=== PATIENT | male | born 1955 | race Caucasian/White ===

== ENCOUNTER 2019-10-24 14:49 | Emergency (ER) | payer OTHER ==
--- OUTSIDE RECORDS SUMMARY | 2019-10-24 14:52 | XMS REPORT ---
:1955 Author Organization [employer] Care Team Providers Name Role Phone Benton Benavides Provider Role Unavailable Allergies, Adverse Reactions, Alerts Substance Reaction Event Type none Info Not Available Non Drug Allergy Problems Problem Type Condition Code Onset Dates Condition Statu s Problem Nasal airway obstruction J34.89 Act yvonne Problem Cough R05 Active Problem Deviated nasal septum J34.2 Active Problem Allergic rhinitis J30.89 Active Problem Chronic laryngitis (LPRD) J37.0 Ac tive Problem Eustachian tube dysfunction, H69.83 Active bilateral Problem Edema of larynx J38.4 Active Problem Acute bronchitis due to other J20.8 Active specified organisms Problem Sinusitis - Chronic J32.8 Active Problem Cough R05 Active Assessment 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 Activ e Assessment Hearing Loss - Mixed H90.8 Active Assessment Eustachian tube dysfunction, H69.83 Active bilateral Assessment Edema of larynx J38.4 Active Assessment Chronic laryngitis (LPRD) J37.0 Ac tive Assessment Sinusitis - Chronic J32.8 Active Assessment Allergic rhinitis J30.89 Active Assessment Cough R05 Active Medications Medication Code Code Instructions Start End Status Dosage System Date Date Julianasalon Juan Manuel [facility] [id number] 100 MG Orally November 09November Active 1 capsule Three times a 2017 04, as needed day 2018 Valacyclovir HCl [facility] 50261367146 500 MG Orally November 09November Activ e 1 tablet twice a day 2017 Zantac [facility] 54458960443 150 MG Orally November 09, Active 1 tabl et Once a day 2018 at bedtime Tessalon Perles [facility] 94975887476 100 MG Orally November 02, Active 1 capsule Three times a 2018 as needed day Tussionex [facility] 89781391006 10-8 MG/5ML November 01November 11, Active 5 ml a s Pennkinetic ER Orally every 12 2017 2017 n eeded hrs Augmentin [facility] 02497848096 875-125 MG Active 1 table t Orally every 12 hrs Omeprazole [facility] 25346319678 40 MG Orally November 09, Active 1 ca psule Once a day 2018 Results No Known Results Summary Purpose eClinicalWorks Submission
--- OUTSIDE RECORDS SUMMARY | 2019-10-24 14:52 | XMS REPORT ---
:1955 [facility] Team Providers Name Role Phone Benton Benavides Provider Role Unavailable Allergies, Adverse Reactions, Alerts Substance Reaction Event Type none Info Not Available Non Drug Allergy Problems Problem Type Condition Code Onset Dates Condition Statu s Problem Deviated nasal septum J34.2 Active Problem Acute bronchitis due to other J20.8 Active specified organisms Problem Cough R05 Active Problem Eustachian tube dysfunction, H69.83 Active bilateral Problem Allergic rhinitis J30.89 Active Problem Chronic pansinusitis J32.4 Active Problem Cough R05 Active Problem Edema of larynx J38.4 Active Problem Chronic laryngitis (LPRD) J37.0 Ac tive Problem Sinusitis - Chronic J32.8 Active Assessment Chronic laryngitis (LPRD) J37.0 Ac tive Assessment Allergic rhinitis J30.89 Active Assessment Cough R05 Active Assessment Sinusitis - Chronic J32.8 Active Assessment Eustachian tube dysfunction, H69.83 Active bilateral Assessment Chronic pansinusitis J32.4 Active Assessment Edema of larynx J38.4 Active Problem Nasal airway obstruction J34.89 Act yvonne Medications Medication Code Code Instructions Start End Status Dosage System Date Date Doxycycline [facility] [place] [id number] 100 MG Orally November 19November Active 1 tablet Hyclate twice a day 2017 Flonase [facility] [place] 05561228388 50 MCG/ACT November 26, Active 2 sprays Nasally Once a 2018 in each day nostril Dymista [facility] [place] 54855286962 137-50 MCG/ACT November 23, Active 1 pu ff in Nasally Twice a 2018 each day nostril Zantac [facility] [place] 53912600433 150 MG Orally November 09, Active 1 tabl et Once a day 2018 at bedtime Omeprazole [facility] [place] 92659145813 40 MG Orally November 09, Active 1 ca psule Once a day 2018 Astepro [facility] [place] 20166031946 0.15 % Nasally November 26, Active 1 sp ray in Twice a day 2018 each nostril Dymista [facility] [place] 43949380247 137-50 MCG/ACT November 19, Active 1 pu ff in Nasally Twice a 2018 each day nostril Results No Known Results Summary Purpose [employer]Works Submission
--- OUTSIDE RECORDS SUMMARY | 2019-10-24 14:52 | XMS REPORT ---
:1955 Author Organization [employer] Care Team Providers Name Role Phone Sang Pino Provider Role Unavailable Allergies, Adverse Reactions, Alerts Substance Reaction Event Type none Info Not Available Non Drug Allergy Problems Problem Type Condition Code Onset Dates Condition Statu s Assessment Edema of larynx J38.4 Active Problem Edema of larynx J38.4 Active Problem Acute bronchitis due to other J20.8 Active specified organisms Problem Cough R05 Active Problem Nasal airway obstruction J34.89 Act yvonne Assessment Cough R05 Active Problem Cough R05 Active Problem Deviated nasal septum J34.2 Active Medications Medication Code Code Instructions Start End Status Dosage System Date Date Tussionex ND 96279278421 10-8 MG/5ML May 23, Active 5 ml a s Pennkinetic ER Orally every 2016 n eeded hrs Zithromax ND 13458580884 250 MG Orally Active 2 ta blets Once a day on the first day, then 1 tablet daily for 4 days Symbicort ND 32988946820 160-4.5 MCG/ACT Jun 04, Active 2 puffs Inhalation 2016 Twice a day Medrol (Terence) ND 01963638634 4 MG Orally November 01, November 07, Active as directed 2017 2017 Zithromax Z-Terence NDC 82669370010 250 MG Orally Jun 07, Active 2 tablets Once a day 2016 on the first day, then 1 tablet daily for 4 days Tussionex ND 47708160625 10-8 MG/5ML November 01, November 11, Active 5 ml a s Pennkinetic ER Orally every 2017 n eeded hrs Results No Known Results Summary Purpose [employer]ClinicalWorks Submission
--- OUTSIDE RECORDS SUMMARY | 2019-10-24 14:52 | XMS REPORT | Clinical Summary ---
:1955 Author Organization [facility] Address [address] [place] [address] Care Team Providers Name Role Phone Jessica Boateng MD Primary Care Provider Allergies No Known Allergies Medications Medication Sig Dispensed Refills Start Date End Date Status FISH OIL-DHA-EPA ORAL Take by mouth. 0 Active Active Problems Not on file Encounters Date Type Specialty Care Team Description 08/12/2019 Hospital Encounter Radiology [facility] Chest Jessica magdaleno MD unspecified typ e 08/12/2019 Hospital Encounter Pulmonology [facility] Dyspne a on exertion; MD KASANDRA Lopez (dyspnea on exertion) 08/12/2019 Hospital Encounter Procedural [facility] Cardiology MD Jessica unspecified typ e 08/12/2019 Hospital Encounter Procedural [facility] Card[facility] MD Jessica unspecified typ e 08/12/2019 Hospital Encounter Procedural [facility] Card[facility] MD Jessica unspecified typ e 08/05/2019 Orders Only General Internal [facility] pa in, unspecified type (Primary Dx); Medicine MD Jessica Dyspnea on exer tion; 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 Last Filed Vital Signs Vital Sign Reading Time Taken Comments Blood Pressure 159/78 08/12/2019 9:27 AM DIRECTOR PAYER Pulse 75 08/12/2019 9:27 AM DIRECTOR PAYER Temperature - - Respiratory Rate 18 08/12/2019 9:27 AM DIRECTOR PAYER Oxygen Saturation 100% 08/12/2019 9:02 AM DIRECTOR PAYER Inhaled Oxygen Concentration - - Weight 77.1 kg (170 lb) 08/12/2019 9:02 AM DIRECTOR PAYER Height 170.2 cm (5' 7") 08/12/2019 9:02 AM DIRECTOR PAYER Body Mass Index 26.63 08/12/2019 9:02 AM DIRECTOR PAYER Plan of Treatment Health Maintenance Due Date Last Done Comments COLONOSCOPY SCREENING 2004 SHINGLES VACCINES (#1) 2004 65+ PNEUMOCOCCAL VACCINE (1 of 2 - PCV13) 2019 INFLUENZA VACCINE 01/17/2020 Procedures Procedure Name Priority Date/Time Associated Diagnosis Comme nts CT CHEST W CONTRAST Routine 08/12/2019 4:35 Chest pain, Resu lts for this PM DIRECTOR PAYER unspecified type procedure a re in the results section. ESTIMATED GFR Routine 08/12/2019 3:47 Results fo r this PM [employer]ER procedure are i n the results section. POC CREATININE Routine 08/12/2019 3:47 Results f or this PM [employer]ER procedure are i n the results section. SIX MINUTE WALK W/ Routine 08/12/2019 3:01 Dyspnea on exertio n Results for this PULSE OXIMETRY PM [employer] procedure are in the results section. SPIROMETRY, Routine 08/12/2019 2:15 SLAUGHTER (dyspnea on Results for this DIFFUSION, MIPS/MEPS PM DIRECTOR PAYER exertion) procedu re are in the results section. US CAROTID DUPLEX Routine 08/12/2019 12:50 Chest pain, Result s for this BILATERAL PM [employer]OR PAYER unspecified type procedure a re in the results section. TTE COMPLETE, WO Routine 08/12/2019 11:51 Chest pain, Results for this CONTRAST, W DOPPLER AM DIRECTOR PAYER unspecified type proc edure are in ([id number]) the results section. NM MYOCARDIAL Routine 08/12/2019 10:44 Chest pain, Results fo r this PERFUSION STRESS AM DIRECTOR PAYER unspecified type procedu re are in REST 1 DAY the results section. CV STRESS TEST Routine 08/12/2019 10:44 Chest pain, Results f or this NUCLEAR CARDIO AM DIRECTOR PAYER unspecified type procedure are in the results section. after 10/23/[address] Chest W Contrast (08/12/2019 4:35 PM DIRECTOR PAYER) Specimen Narrative Performed At Study:CT CHEST W CONTRAST [facility] History: R07.9 Chest pain unspecified, Chest wall pain COMPARISON: None. TECHNIQUE: Multiple axial CT images of the chest perfo rmed With IV contrast.. Coronal and sagittal reconstr uctions were done. CT imaging was performed with iterative reconstruction technique and/or automated exposure control to reduce rad iation dose. FINDINGS: LUNGS: There is no focal consolidation, pleural effusi on, or pneumothorax. There are no suspicious pulmonary nodule s or pulmonary mass. AIRWAYS: No central endobronchial or end otracheal lesions are seen. MEDIASTINUM: The thoracic aorta is without aneurysm or dissection. The pulmonary arteries are unremarkable. Heart is mildly e nlarged. No significant pericardial effusion is present. Mediastin al lymph nodes are small and subcentimeter along the paratracheal region. This nonspecific but probably germain ctive. A small hiatal hernia is present. BONES AND OVERLYING SOFT TISSUES: No acute abnormality of the bones. No enlarged axillary lymph nodes present. VISUALIZED LOWER NECK AND UPPER ABDOMEN: Unremarkable. IMPRESSION: No significant abnormality. [facility]-[id number] Procedure Note Interface, Radiology Results Incoming - 08/12/2019 5:39 PM DIRECTOR PAYER Study:CT CHEST W CONTRAST History: R07.9 Chest pain unspecified, Chest wall pain COMPARISON: None. TECHNIQUE: Multiple axial CT images of t he chest performed With IV contrast.. Coronal and sagittal reconstructions were done. CT imaging was performed with iterative reconstruction technique and/or automated exposure control to reduce radiation dose. FINDINGS: LUNGS: There is no focal consolidation, pleural effusion, or pneumothorax. There are no suspicious pulmonary nodules or pulmonary mass. AIRWAYS: No central endobronchial or end otracheal lesions are seen. MEDIASTINUM: The thoracic aorta is witho ut aneurysm or dissection. The pulmonary arteries are unremarkable. Heart is mildly enlarged. No significant pericardial effusion is present. Mediastinal lymph nodes are small and subcentimeter along the paratracheal region. This nonspecific bu t probably reactive. A small hiatal hernia is present. BONES AND OVERLYING SOFT TISSUES: No acu te abnormality of the bones. No enlarged axillary lymph nodes present. VISUALIZED LOWER NECK AND UPPER ABDOMEN: Unremarkable. IMPRESSION: No significant abnormality. [facility]-[id number] Performing Organization Address City/State/Zipcode Phone Number [facility] [address] [place] [address] Estimated GFR (08/12/2019 3:47 PM DIRECTOR PAYER) Estimated GFR 52 (A) mL/min/1.73 [facility] Comment: m2 HOSPITAL Catergory Units Interpretation G1 >=90 Normal or high G2 60-89 Mildly decreased G3a 45-59 Mildly to moderately decreas ed G3b 30-44 Moderately to severely decre ased G4 15-29 Severely decreased G5 <15 Kidney failure The eGFR was calculated using the Chronic Kidney Disea se Epidemiology Collaboration (CKD-EPI) equation. Interpretation is based on recommendations of the National Kidney Foundation-Kidney Disease Outcomes Jean Carlos lity Initiative (NKF-KDOQI) published in 2014. Specimen Blood Performing Organization Address City/[facility]/Zipcode Phone Number [facility] DEPARTMENT OF PATHOLOGY AND [address] [place] [address] [phone] [address] POC creatinine (08/12/2019 3:47 PM DIRECTOR PAYER) POC creatinine 1.4 (H) 0.7 - 1.2 [facility] Comment: mg/dl HOSPITAL Heel Scourer Name: Chris Mckeon Device ID: [id number] Specimen Blood Performing Organization Address City/[facility] Phone Number [facility] DEPARTMENT OF PATHOLOGY AND [address] [place] [address] [phone] [address] Six minute walk w/ pulse oximetry (08/12/2019 3:01 PM DIRECTOR PAYER) Pathologist Sig nature Heart Rate at Rest 58.00 1/min [facility] SPO2 at Rest 96.00 % [facility] BP Systolic at Rest 170.00 mmHg [facility] BP Diastolic at Rest 85.00 mmHg [facility] Heart Rate after 1 72.00 1/min [facility] minute SPO2 after 1 minute 97.00 % [facility] Heart Rate after 2 73.00 1/min [facility] minutes SPO2 after 2 minutes 93.00 % [facility] Heart Rate after 3 87.00 1/min [facility] minutes SPO2 after 3 minutes 97.00 % [facility] Heart Rate after 4 93.00 1/min [facility] minutes SPO2 after 4 minutes 96.00 % [facility] Heart Rate after 5 94.00 1/min [facility] minutes SPO2 after 5 minutes 92.00 % [facility] Six Minute Walk Distance 600.00 364.25 - 670.25 m [facility] ON in m Heart Rate after 6 96.00 1/min [facility] minutes Highest Heart Rate 96.00 1/min [facility] SPO2 after 6 minutes 93.00 % [facility] Lowest SpO2 92.00 % [facility] BP Systolic after 6 178.00 mmHg [facility] minutes BP Diastolic after 6 92.00 mmHg [facility] minutes Lap Count 15.00 [facility] Six Minute Walk Distance 517 [facility] Predicted Specimen Narrative Performed At This result has an attachment that is no t available. Performing Organization Address City/State/Zipcode Phone Number [facility] [address] [place] [address] Spirometry, diffusion, MIPS/MEPS (08/12/2019 2:15 PM DIRECTOR PAYER) Pathologist Sig nature FEV1 Pre 3.17 2.34 - 3.78 L [facility] FEV1/FVC % Pre 76.14 64.96 - 84.31 % [facility] FVC Pre 4.16 3.26 - 4.96 L [facility] PEF Pre 9.20 6.04 - 10.28 L/s [facility] FEF 25-75% Pre 2.17 0.99 - 3.91 L/s [facility] DLCO Pre 23.28 18.08 - 34.00 [facility] ml/(min*mmHg) DL/VA Pre 4.23 3.06 - 5.46 [facility] ml/(min*mmHg*L) VA SB Pre 5.51 4.88 - 7.61 L [facility] DLCOc Pre 23.28 18.08 - 34.00 [facility] ml/(min*mmHg) KCOc SB Pre 4.23 3.06 - 5.46 [facility] ml/(min*mmHg*L) Hb Pre 14.60 g(Hb)/dL [facility] MIP Pre 118.73 31.98 - 137.81 [facility] cmH2O MEP Pre 194.33 82.61 - 184.66 [facility] cmH2O FEV1 Predicted 3.06 [facility] FEV1 LLN 2.34 [facility] FEV1 % Pre of Predicted 103.4 % [facility] FVC Predicted 4.11 [facility] FVC LLN 3.26 [facility] FVC % Pre of Predicted 101.2 % [facility] FEV1/FVC % Predicted 75 [facility] FEV1/FVC % LLN 65 [facility] FEV1/FVC % Pre of 102.0 % [facility] Predicted FEF 25-75% Predicted 2.45 [facility] FEF 25-75% LLN 0.99 [facility] FEF 25-75% % Pre of 88.8 % [facility] Predicted PEF Predicted 8.16 [facility] PEF LLN 6.04 [facility] PEF % Pre of Predicted 112.7 % [facility] DLCO Predicted 26.04 [facility] DLCO LLN 18.08 [facility] DLCO % Pre of Predicted 89.4 % [facility] DLCOc Predicted 26.04 [facility] DLCOc LLN 18.08 [facility] DLCOc % Pre of 89.4 % [facility] Predicted DL/VA Predicted 4.26 [facility] DL/VA LLN 3.06 [facility] DL/VA % Pre of 99.2 % [facility] Predicted KCOc SB Predicted 4.26 [facility] KCOc SB LLN 3.06 [facility] KCOc SB % Pre of 99.2 % [facility] Predicted VA SB Predicted 6.24 [facility] VA SB LLN 4.88 [facility] VA SB % Pre of 88.2 % [facility] Predicted MIP Predicted 84.89 [facility] MIP LLN 31.98 [facility] MIP % Pre of Predicted 139.9 % [facility] MEP Predicted 133.64 [facility] MEP LLN 82.61 [facility] MEP % Pre of Predicted 145.4 % [facility] Specimen Narrative Performed At This result has an attachment that is no t available. Performing Organization Address City/State/Zipcode Phone Number [facility] [address] [place] [address] Us carotid duplex (08/12/2019 12:50 PM DIRECTOR PAYER) Specimen Narrative Performed At [facility] Vascular U ltrasound Laboratory Carotid A rtery Duplex Report [address] [facility], [facility] [address], [place] [address] For supplier quality manager purposes, the categorization of the degree of the stenosis of this exam is based on criteria described i n the IAC carotid stenosis grading white paper( www.intersocietal.org/Va scular) and Orville Segura., Lino Jensen., et al. Carotid artery stenosis: contreras-scale and Doppler US diagnosis-- Society of Radiologists in Ultrasound Consensus Conference. Radio logy. 2002; 229(2):340-6. Pat.Name: SANKET ALVAREZ M Pat.ID: [id number] .Date: 08/12/2019 Refer.MD: FREEDOM BOATENG MD Exam Time: 11:58:00 AM Study Type:Ca rotid Height: 67in Weight: 170lb BSA: 1.89 m2 Ag e: 1955,64Y Sex: MALE Sonogr phr: Jocelynkimberly Osman, FLACA Pat. Stat.:Outpatient Tape Vol: LN, CPT - 4: 21257 Echo Abi nt ID:[id number] Order ID: [id number] Reason for Study:Chest pain. Procedures: Colorflow, Grayscale/2D, Pul sed wave Doppler Race: C SUMMARY: PHYSICAL ASSESSMENT Blood Pulses Carotid Pressure Carotid Temporal Br uit Right 136/71 + + 0 Left 141/74 + + 0 CAROTID ARTERY SCAN RIGHT: There is intimal thickening i n the common carotid artery. There is smooth intimal lining in the in ternal and external carotid artery. Colorflow is normal. There is antegrade flow seen in the vertebral artery. LEFT: There is hard plaque in the comm on carotid artery. There is smooth intimal lining in the internal an d external carotid artery. Colorflow is normal. There is antegrade flow seen in the vertebral artery. PRELIMINARY FINDINGS 1. Non-stenotic plaque in the left commo n carotid artery. 2. Normal internal carotid artery, bilat erally. 3. Normal external carotid artery, bilat rally. PHYSICIAN INTERPRETATION Bilateral carotid duplex examination dem onstrated increased IMT and atherosclerotic plaques in the left bulb and in the CCAs. Less than 50% stenosis in the left inter nal carotid artery. FINDINGS: Carotid Findings: Right Left Verteb.Flw Antegrade Antegrade Subclavian Triphasic Triphasic MEASUREMENTS: DOPPLER Right CCA Dist CCA Dist PSV 88.7 cm/s CCA Dist EDV 17.6 cm/s Right CCA Prox CCA Prox PSV 88.7 cm/s CCA Prox EDV 11.1 cm/s Right ECA Prox ECA Prox PSV 138 cm/s ECA Prox EDV 7.69 cm/s Right ICA Dist ICA Dist PSV 95.1 cm/s ICA Dist EDV 22.4 cm/s ICA Mid ICA Mid PSV 80.7 cm/s ICA Mid EDV 25.4 cm/s Right ICA Prox ICA Prox PSV 68.5 cm/s ICA Prox EDV 14.1 cm/s Right Vertebral Vertebral PSV 42.7 cm/s Vertebral EDV 10.9 cm/s Right Subclavian Subclavian PSV 170 cm/s Subclavian EDV 8.08 cm/s Left CCA Dist CCA Dist PSV 103 cm/s CCA Dist EDV 25.7 cm/s Left CCA Mid CCA Mid PSV 122 cm/s CCA Mid EDV 29.4 cm/s Left CCA Prox CCA Prox PSV 125 cm/s CCA Prox EDV 20.7 cm/s Left ECA Prox ECA Prox PSV 118 cm/s ECA Prox EDV 9.53 cm/s Left ICA Dist ICA Dist PSV 94.7 cm/s ICA Dist EDV 34.9 cm/s Left ICA Mid ICA Mid PSV 103 cm/s ICA Mid EDV 31.7 cm/s Left ICA Prox ICA Prox PSV 67.2 cm/s ICA Prox EDV 12.8 cm/s Left Vertebral Vertebral PSV 62.2 cm/s Vertebral EDV 20.4 cm/s Left Subclavian Subclavian PSV 166 cm/s Subclavian EDV 3.72 cm/s Right CCA Mid CCA Mid PSV 89.5 cm/s CCA Mid EDV 13.9 cm/s Right ICA/CCA Ratio ICA/CCA PSV 0.765 Left ICA/CCA Ratio ICA/CCA PSV 0.551 Signed 08/12/2019 10:58 PM Tomi Florence MD, RPVI Procedure Note Interface, Radiology Results In - 2019 10:59 PM [facility] Vascular Ultrasound Laboratory Carotid Artery Dupl ex Report [address] [address] For supplier quality manager purposes, the howard gorization of the degree of the stenosis of this exam is based on criteria described in the IAC carotid stenosis grading white paper( www.intersocietal.org/Vascular) and Orville Segura., Flor Jensen, et al. Carotid artery stenosis: contreras-scale and Doppler US diagnosis--Society of Radiologists in Ultrasound Consensus Conference. Radiology. 2003 Nov; 229(2):340-6. Pat.Name: ALVAREZ COLES Pat.I D: [id number] St.Date: 08/12/2019 Refer .MD: FREEDOM BOATENG MD Exam Time: 11:58:00 AM Study Type:Carotid Height: 67in Weigh t: 170lb BSA: 1.89 m2 Age: 10 1955,64Y Sex: MALE Sonog rphr: Jocelyn Osman RVT Pat. Stat.:Outpatient Tape Vol: LN, CPT - 4: 65526 Echo Event ID:[id number] Order ID: [id number] Reason for Study:Chest pain. Procedures: Colorflow, Grayscale/2D, Pul sed wave Doppler Race: C SUMMARY: PHYSICAL ASSESSMENT Blood Pulses Caroti d Pressure Carotid Temporal Bruit Right 136/71 + + 0 Left 141/74 + + 0 CAROTID ARTERY SCAN RIGHT: There is intimal thickening in the common carotid artery. There is smooth intimal lining in the in ternal and external carotid artery. Colorflow is normal. There is a ntegrade flow seen in the vertebral artery. LEFT: There is hard plaque in the commo n carotid artery. There is smooth intimal lining in the internal an d external carotid artery. Colorflow is normal. There is antegrade flow seen in the vertebral artery. PRELIMINARY FINDINGS 1. Non-stenotic plaque in the left commo n carotid artery. 2. Normal internal carotid artery, bilat mike. 3. Normal external carotid artery, bilat walter. PHYSICIAN INTERPRETATION Bilateral carotid duplex examination dem onstrated increased IMT and atherosclerotic plaques in the left bulb and in the CCAs. Less than 50% stenosis in the left inter nal carotid artery. FINDINGS: Carotid Findings: Right Left Verteb.Flw Antegrade Antegrade Subclavian Triphasic Triphasic MEASUREMENTS: DOPPLER Right CCA Dist CCA Dist PSV 88.7 cm/s CCA Dist EDV 17.6 cm/s Right CCA Prox CCA Prox PSV 88.7 cm/s CCA Prox EDV 11.1 cm/s Right ECA Prox ECA Prox PSV 138 cm/s ECA Prox EDV 7.69 cm/s Right ICA Dist ICA Dist PSV 95.1 cm/s ICA Dist EDV 22.4 cm/s ICA Mid ICA Mid PSV 80.7 cm/s ICA Mid EDV 25.4 cm/s Right ICA Prox ICA Prox PSV 68.5 cm/s ICA Prox EDV 14.1 cm/s Right Vertebral Vertebral PSV 42.7 cm/s Vert ebral EDV 10.9 cm/s Right Subclavian Subclavian PSV 170 cm/s Subc lavian EDV 8.08 cm/s Left CCA Dist CCA Dist PSV 103 cm/s CCA Dist EDV 25.7 cm/s Left CCA Mid CCA Mid PSV 122 cm/s CCA Mid EDV 29.4 cm/s Left CCA Prox CCA Prox PSV 125 cm/s CCA Prox EDV 20.7 cm/s Left ECA Prox ECA Prox PSV 118 cm/s ECA Prox EDV 9.53 cm/s Left ICA Dist ICA Dist PSV 94.7 cm/s ICA Dist EDV 34.9 cm/s Left ICA Mid ICA Mid PSV 103 cm/s ICA Mid EDV 31.7 cm/s Left ICA Prox ICA Prox PSV 67.2 cm/s ICA Prox EDV 12.8 cm/s Left Vertebral Vertebral PSV 62.2 cm/s Vert ebral EDV 20.4 cm/s Left Subclavian Subclavian PSV 166 cm/s Subc lavian EDV 3.72 cm/s Right CCA Mid CCA Mid PSV 89.5 cm/s CCA Mid EDV 13.9 cm/s Right ICA/CCA Ratio ICA/CCA PSV 0.765 Left ICA/CCA Ratio ICA/CCA PSV 0.551 Signed 08/12/2019 10:58 PM Tomi Florence MD, RPVI Performing Organization Address City/State/Zipcode Phone Number [facility] [address] [place] [address] Echocardiogram complete w contrast and 3D if needed (08/12/2019 11:51 AM DIRECTOR PAYER) Specimen Narrative Performed At [facility] Echo cardiography Report [address] [place] [address] Pat.Name: ALVAREZ COLES Pat.ID: [id number] .Date: 08/12/2019 Refer.MD: FREEDOM BOATENG MD Exam Time: 11:27:00 AM Study Type:Ro utine Echo Height: 68in Weight: 170lb BSA: 1.91 m2 Ag e: 1955,64Y Sex: MALE BP: 159/78 HR: 65 bpm Sonogr phr: Peri Reese RDCS Pat. Stat.:Outpatient Room: [place] [address] Study Status:Final Echo Event ID:[id number] Order ID: [id number] Reason for Study:Chest pain, cardiac cassius ology suspected History / Clinical:Dizziness, Dyspnea On Exertion, Shortness of Breath, Syncope Procedures: 2D Echo, Colorflow Doppler, Strain Race: White SUMMARY: LV EF is hyperdynamic. Estimated EF is >70%. RV systolic function is normal. Estimated PA systolic pressure is 25 mmH g, assuming a mean RAP of 5 mmHg. FINDINGS: LV: LV size is normal. Normal a verage LV global longitudinal strain at -20.6%. LV EF is hyperdynamic. Overall wall motion is hyperdynamic. Estimated EF is >70%. RV: RV size is normal. RV systo lic function is normal. LA: LA volume is moderately enl arged. RA: RA volume is enlarged. AO: Aortic root diameter is nor mal. NICOLE: No pericardial effusion. AV: No structural AV abnormalit ies noted. MV: No structural MV abnormalit ies noted. PV: Pulmonic valve not well see n. TV: No structural TV abnormalit ies noted. Blackwood: Normal diastolic function an d LV filling pressures. Other: Estimated PA systolic pressu re is 25 mmHg, assuming a mean RAP of 5 mmHg. MEASUREMENTS: 2D Parasternal Long Prentiss Ao An 2 cm LVPWd 1 cm Ao Rtd 3.5 cm Index 1.8 cm/m2 LA Ds 4.3 cm IVSd 0.95 cm RWT 0.39 LVIDd 5.2 cm Index 2.7 cm/m2 LV Mass 188 g (122-1 74) LVIDs 2.7 cm LVM In dex 98 g/m LV%fs 48 % LVOT 1.9 cm LA Sng Plane LA Area 24 cm (8.8-23.4) LA Vol 82 ml Index 43 ml/m2 LA LngAx 5.9 cm LVOT LVOT Area 2.9 cm DOPPLER LVOT Stroke Vol LVOT TVI 22 cm HR 55 bpm LVOT LVOT SV 64 ml LVOT CO 3.5 l/min SVi 34 ml/m LVOT C I 1.8 l/m/m Signed 08/12/2019 01:48 PM Serafin Stanford MD Procedure Note Interface, Radiology Results In - 2019 1:49 PM DIRECTOR PAYER Echocardiography Report [address] [place] [address] Pat.Name: ALVAREZ COLES Pat.I D: [id number] .Date: 08/12/2019 Refer .MD: FREEDOM BOATENG MD Exam Time: 11:27:00 AM Study Type:Routine Echo Height: 68in Weigh t: 170lb BSA: 1.91 m2 Age: 10 1955,64Y Sex: MALE BP: 159/78 HR: 65 bpm Sonog rphr: Peri Reese RDCS Pat. Stat.:Outpatient Room: [place] [address] Study Status:Final Echo Event ID:[id number] Order ID: [id number] Reason for Study:Chest pain, cardiac cassius ology suspected History / Clinical:Dizziness, Dyspnea On Exertion, Shortness of Breath, Syncope Procedures: 2D Echo, Colorflow Doppler, Strain Race: White SUMMARY: LV EF is hyperdynamic. Estimated EF is >70%. RV systolic function is normal. Estimated PA systolic pressure is 25 mmH g, assuming a mean RAP of 5 mmHg. FINDINGS: LV: LV size is normal. Normal aver age LV global longitudinal strain at -20.6%. LV EF is hy perdynamic. Overall wall motion is hyperdynamic. Estim ated EF is >70%. RV: RV size is normal. RV systolic function is normal. LA: LA volume is moderately enlarg ed. RA: RA volume is enlarged. AO: Aortic root diameter is normal . NICOLE: No pericardial effusion. AV: No structural AV abnormalities noted. MV: No structural MV abnormalities noted. PV: Pulmonic valve not well seen. TV: No structural TV abnormalities noted. Blackwood: Normal diastolic function and LV filling pressures. Other: Estimated PA systolic pressure is 25 mmHg, assuming a mean RAP of 5 mmHg. MEASUREMENTS: 2D Parasternal Long Prentiss Ao An 2 cm LVPW d 1 cm Ao Rtd 3.5 cm Inde x 1.8 cm/m2 LA Ds 4.3 cm IVSd 0.95 cm RWT 0.39 LVIDd 5.2 cm Inde x 2.7 cm/m2 LV Mass 188 g (122-174) LVIDs 2.7 cm LVM Index 98 g/m LV%fs 48 % LVOT 1.9 cm LA Sng Plane LA Area 24 cm (8.8-23.4) L A Vol 82 ml Index 43 ml/m2 LA LngAx 5.9 cm LVOT LVOT Area 2.9 cm DOPPLER LVOT Stroke Vol LVOT TVI 22 cm HR 55 bpm LVOT LVOT SV 64 ml LVOT CO 3.5 l/min SVi 34 ml/m LVO T CI 1.8 l/m/m Signed 08/12/2019 01:48 PM Serafin Stanford MD Performing Organization Address City/State/Zipcode Phone Number [facility] [address] [place] [address] Cv stress test (08/12/2019 10:44 AM DIRECTOR PAYER) Pathologist Sig nature Resting HR 57 [facility] Resting BP 146 [facility] Peak MET Achieved 1.0 [facility] Protocol Name [facility] MUSE Time in Exercise Phase 00:01:00 [facility] Max Systolic BP 169 [facility] Max Diastolic BP 83 [facility] Max Heart Rate 80 [facility] Max Predicted Heart 155 [facility] Rate Target HR Formula (220 - Age)*100% [facility] M[facility] Test Indication chest pain H MUSE Arrhy During Ex [facility] ECG Interp Before EX [facility] ECG Interp During Ex [facility] Ex Summary Comment H MUSE Overall HR Response to [facility] Exercise Overall BP Response To [facility] Exercise Reason for Termination Protocol Complete [facility] MUSE Stress Test Impression -Electronically [facility] MUSE Signed By Pedro MONTERO, Bailey ([id number]), image editor Steph Antunez ([id number]) on 08/13/2019 8:40:38 AM Specimen Narrative Performed At This result has an attachment that is no t available. Performing Organization Address City/State/Zipcode Phone Number [facility] MUSE [address] [place] [address] Nm myocardial perfusion (08/12/2019 10:44 AM DIRECTOR PAYER) Specimen Narrative Performed At This result has an attachment that is no t available. [facility] Nuclear Cardiology and Card iac CT [address] [place] [id number] Myocardial Perfusion Imagin g Report Stress ECG tracings are available in MUSE, EP IC and CV Web All ECG interpretations are included in this report Pat.Name: ALVAREZ COLES Pat.ID: [id number] .Date: 08/12/2019 Refer.MD: FREEDOM BOATENG MD Exam Time: 10:12:00 AM Study Type:Myocardial Perfusion Imaging Height: 68in BSA: 1.91 m2 Age: 10 1955,64Y Sex: MALE BP: 146/83 HR: 55 bpm Nuclear Tech:STELLA Martinez, ARRT/STELLA Guadalupe, ARRT Pat. Stat.:Outpatient Tape Vol: 26.6, Nuclear Event ID:[id number] Order ID: [id number] Reason for Study:Chest pain, unspecified History / Clinical:Family history CAD, Hyperlipidemia Procedures: Low Dose Stress Only Race: C Risk Factors:Hyperlipidemia, Family history of cardiov ascular disease Clinical Symptoms:Regadenoson Physical Exam:S1, S2 SUMMARY: SCINTIGRAPHIC RESULTS Perfusion Defect Size (% LV) 0 % Total 0 % Ischemia 0 % Scar Left Ventricular Perfusion Results There is normal tracer distribution throughout the sue cardium during stress. Gated SPECT Results The post-stress left ventricular ejection fraction is 71 % with normal regional wall motion and left ventricular thickening. Left ventricular end-diastolic volume is 95 ml; end-systoli c volume is 28 ml. The left ventricle is of normal size at stress. Conclusion Normal regadenoson Tc-99m tetrofosmin myocardial perfu kenneth study. The left ventricular ejection fraction is normal. CT Findings: There appear to be no coronary artery calcifications p resent. The ascending and descending aorta are normal in size. The re is no significant pericardial effusion. Limited lung valladares show no significant abnormalities. Study Quality/Artifacts The study quality is good. Comparison to Previous Study None available. FINDINGS: STRESS: Baseline Vital Signs: Intervention Regadenoson 0.4mg/5ml IV over 10 seconds followed by radiotracer injection a nd 5ml saline flush Baseline EKG Sinus bradycardia, Incomplete right bundl e branch block, Left Prentiss Deviation Heart Rate: 55 Atropine Administered: 0 Rest BP: 146/83 Stress Test Results: Target HR: 132 Symptoms and Complications: Stress-induced Arrhythmias Atrial premature depolariza tions, Ventricular premature depolarizations, Ventricular tri geminy Reason for Stopping Test: As per Regadenoson protocol Symptoms During Test Headache, Shortness of breath, Le g fatigue, Chest heaviness Complications None Other: Normal heart rate response to pharmacolog ical stress, Normal blood pressure response to pharmacological stre ss ECG / Stress Interpretation: No ischemic ST segment ch pranav occurred with stress. Signed 08/12/2019 02:25 PM Bailey Vasquez MD Procedure Note Interface, Radiology Results In - 2019 2:26 PM DIRECTOR PAYER Nuclear Cardiology and Cardiac CT [address] [place] [address] [phone] Myocardial Perfusion I maging Report Stress ECG tracings are available in [employer] All ECG interpretations are in cluded in this report Pat.Name: ALVAREZ COLES Pat.I D: [id number] .Date: 08/12/2019 Refer .MD: FREEDOM BOATENG MD Exam Time: 10:12:00 AM Study Type:Myocardial Perfusion Imaging Height: 68in BSA: 1.91 m2 Age: 10 1955,64Y Sex: MALE BP: 146/83 HR: 55 bpm Nuclear Tech:Cayetano Du, ONLINE TRADER, ARRT/STELLA Pizarro, ARRT Pat. Stat.:Outpatient Tape Vol: 26.6, Nuclear Event ID:[id number] Order ID: [id number] Reason for Study:Chest pain, unspecified History / Clinical:Family history CAD, H yperlipidemia Procedures: Low Dose Stress Only Race: C Risk Factors:Hyperlipidemia, Family hist ory of cardiovascular disease Clinical Symptoms:Regadenoson Physical Exam:S1, S2 SUMMARY: SCINTIGRAPHIC RESULTS Perfusion Defect Size (% LV) 0 % Total 0 % Ischemia 0 % Scar Left Ventricular Perfusion Results There is normal tracer distribution thro ughout the myocardium during stress. Gated SPECT Results The post-stress left ventricular ejectio n fraction is 71 % with normal regional wall motion and left ventricula r thickening. Left ventricular end-diastolic volume is 95 m l; end-systolic volume is 28 ml. The left ventricle is of normal size at stress. Conclusion Normal regadenoson Tc-99m tetrofosmin my ocardial perfusion study. The left ventricular ejection fraction is no rmal. CT Findings: There appear to be no coronary artery ca lcifications present. The ascending and descending aorta are emigdio l in size. There is no significant pericardial effusion. Limite d lung valladares show no significant abnormalities. Study Quality/Artifacts The study quality is good. Comparison to Previous Study None available. FINDINGS: STRESS: Baseline Vital Signs: Inter vention Regadenoson 0.4mg/5ml IV over 10 seconds followed by radiotrac er injection and 5ml saline flush Baseline EKG Sinus bradycardia, Incomple te right bundle branch block, Left Prentiss Deviation Heart Rate: 55 Atrop ine Administered: 0 Rest BP: 146/83 Stress Test Results: Target HR: 132 Symptoms and Complications: Stress-induced Arrhythmias Atrial premat ure depolarizations, Ventricular premature depolarizations, V entricular trigeminy Reason for Stopping Test: As per Regaden oson protocol Symptoms During Test Headache, Shortness of breath, Leg fatigue, Chest heaviness Complications None Other: Normal heart rate response to pharmacological stress, Normal blood pressure response to pharma cological stress ECG / Stress Interpretation: No ischemic ST segment change occurred with stress. 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
--- OUTSIDE RECORDS SUMMARY | 2019-10-24 14:52 | XMS REPORT ---
:1955 Author Organization eClinicalWorks Care Team Providers Name Role Phone Benton Benavides Provider Role Unavailable Allergies No Known Allergies Problems Problem Type Condition Code Onset Dates [...] Chronic J32.8 Active Problem Cough R05 Active Medications Medication Code System Code Instructions Start End Date Status Dos age Date Dymista [facility] 46863720791 137-50 MCG/ACT November 23, Active 1 pu ff in Nasally Twice a 2018 each day nostril Results No Known Results Summary Purpose [employer]Clinical[employer]Stand Submission
--- OUTSIDE RECORDS SUMMARY | 2019-10-24 14:52 | XMS REPORT ---
:1955 Author Organization eClinicalWorks Care Team Providers Name Role Phone Chiquita Loera Provider Role Unavailable Allergies No Known Allergies Problems Problem Type Condition Code Onset Dates Condition Statu s Problem Edema of larynx J38.4 Active Problem Acute bronchitis due to other J20.8 Active specified organisms Problem Cough R05 Active Problem Nasal airway obstruction J34.89 Act yvonne Problem Cough R05 Active Problem Deviated nasal septum J34.2 Active Medications No Known Medications Results No Known Results Summary Purpose eClinicalWorks Submission
--- OUTSIDE RECORDS SUMMARY | 2019-10-24 14:52 | XMS REPORT ---
:1955 Author Organization eClinicalWorks Care Team Providers Name Role Phone Sang Pino Provider Role Unavailable Allergies No Known Allergies [...] Start End Status Dosage System Date Date Tessalon NDC 12990592365 100 MG Orally November 02, 1 cap gregory Perles Three times a 2018 as needed day Results No Known Results Summary Purpose eClinicalWorks Submission
--- OUTSIDE RECORDS SUMMARY | 2019-10-24 14:52 | XMS REPORT ---
[...] Nasal airway obstruction J34.89 Act yvonne Problem Eustachian tube dysfunction, H69.83 Active bilateral Problem Allergic rhinitis J30.89 Active Problem Chronic pansinusitis J32.4 Active Problem Cough R05 Active Problem Edema of larynx J38.4 Active Problem Chronic laryngitis (LPRD) J37.0 Ac tive Problem Sinusitis - Chronic J32.8 Active Medications No Known Medications Results No Known Results Summary Purpose eClinicalWorks Submission
--- OUTSIDE RECORDS SUMMARY | 2019-10-24 14:53 | XMS REPORT ---
:1955 Author Organization eClinicalWorks Care Team Providers Name Role Phone Benton Benavides Provider Role Unavailable Allergies No Known Allergies Problems Problem Type Condition Code Onset Dates Condition Statu s Problem Deviated nasal septum J34.2 Active Problem Acute bronchitis due to other J20.8 Active specified organisms Problem Cough R05 Active Problem Nasal airway obstruction J34.89 Act yvonen Problem Eustachian tube dysfunction, H69.83 Active bilateral Problem Allergic rhinitis J30.89 Active Problem Chronic pansinusitis J32.4 Active Problem Cough R05 Active Problem Edema of larynx J38.4 Active Problem Chronic laryngitis (LPRD) J37.0 Ac tive Problem Sinusitis - Chronic J32.8 Active Medications Medication Code System Code Instructions Start End Date Status Dos age Date [facility] 14020289414 137 MCG/SPRAY November 28, 2 spr ays in Nasally Twice a 2018 each day PRN nostril Results No Known Results Summary Purpose eClinicalWorks Submission
--- OUTSIDE RECORDS SUMMARY | 2019-10-24 14:53 | XMS REPORT ---
[...] - Chronic J32.8 Active Medications Medication Code Code Instructions Start End Status Dosage System Date Date Doxycycline NDC 15149999571 100 MG orally January 03December Active 1 tablet Twice a day 2017 Medrol (Terence) NDC 49520134010 4 MG Orally January 03December Active as directed 2017 [place] NDC 28893531099 5-325 MG Orally January 03 1 t ablet as every 6 hrs 2018 needed Results No Known Results Summary Purpose eClinicalWorks Submission
--- OUTSIDE RECORDS SUMMARY | 2019-10-24 14:53 | XMS REPORT ---
:1955 Author Organization eClinicalWorks Care Team Providers Name Role Phone Benton Benavides Provider Role Unavailable Allergies No Known Allergies Problems Problem Type Condition Code Onset Dates Condition Statu s Problem Deviated nasal septum J34.2 Active Problem Acute bronchitis due to other J20.8 Active specified organisms Problem Cough R05 Active Assessment Chronic pansinusitis J32.4 Active Problem Nasal airway obstruction J34.89 Act [...]
--- OUTSIDE RECORDS SUMMARY | 2019-10-24 14:53 | XMS REPORT ---
:1955 Author Organization eClinicalWorks Care Team Providers Name Role Phone Benotn Benavides Provider Role Unavailable Allergies, Adverse Reactions, [...] Chronic laryngitis (LPRD) J37.0 Ac tive Assessment Edema of larynx J38.4 Active Assessment Cough R05 Active Assessment Allergic rhinitis J30.89 Active Assessment Sinusitis - Chronic J32.8 Active Assessment Eustachian tube dysfunction, H69.83 Active bilateral Problem Nasal airway obstruction J34.89 Act yvonne Medications Medication Code Code Instructions Start End Status Dosage System Date Date Doxycycline [facility] 81069896316 100 MG Orally November 19November Active 1 tablet Hyclate twice a day 2017 Valacyclovir HCl [facility] 79093115642 500 MG Orally November 09November Activ e 1 tablet twice a day 2017 Zantac [facility] 46272109351 150 MG Orally November 09, Active 1 tabl et at Once a day 2018 bedtime Augmentin [facility] 70894574462 875-125 MG Active 1 table t Orally every 12 hrs Dymista [facility] 05293401594 137-50 MCG/ACT November 19 Active 1 pu ff in Nasally Twice a 2018 each day nostril Medrol (Terence) [facility] 50434599180 4 MG Orally November 19November Active as directed 2017 Teswendi Vosses ND 80908789650 100 MG Orally November 09November Active 1 capsule Three times a 2018 , as needed day 2017 Omeprazole [facility] 43870900829 40 MG Orally November 09, Active 1 ca psule Once a day 2017 Results No Known Results Summary Purpose eClinicalWorks Submission
--- OUTSIDE RECORDS SUMMARY | 2019-10-24 14:54 | XMS REPORT ---
:1955 Author [facility] Care Team Providers Name Role Phone [...] Problem Sinusitis - Chronic J32.8 Active Assessment Nasal congestion R09.81 Active Assessment Allergic rhinitis J30.89 Active Assessment Sinusitis - Chronic J32.8 Active Problem Nasal airway obstruction J34.89 Act yvonne Medications Medication Code Code Instructions Start End Status Dosage System Date Date Dymista ND 53569860166 137-50 MCG/ACT November 23, Active 1 pu ff in Nasally Twice a 2018 each day nostril Dymista NDC 93500479190 137-50 MCG/ACT November 19, Active 1 pu ff in Nasally Twice a 2018 each day nostril Doxycycline [facility] [address]-85 Active not defined Omeprazole ND 82407845686 40 MG Orally November 09, Active 1 ca psule Once a day 2018 [place] ND 08602880943 137 MCG/SPRAY November 28, Active 2 spr ays Nasally Twice a 2018 in each day PRN nostril Tramadol HCl ND 24143559015 50 MG Orally January 04, Active 1 tablet every 4 hrs 2018 as needed for pain [place] ND 94925002617 5-325 MG Orally January 03, Active 1 t ablet every 6 hrs 2018 as needed Flonase ND 93852917815 50 MCG/ACT November 26, Active 2 sprays Nasally Once a 2018 in each day nostril Tramadol HCl ND 07941580985 50 MG Orally January 11, Active 1 tablet every 6 hrs 2017 as needed tramadol NDC 0 Active not defined Astepro [facility] 35353740085 0.15 % Nasally November 26, Active 1 sp ray in Twice a day 2017 each nostril Zantac ND 75250586895 150 MG Orally November 09, Active 1 tabl et Once a day 2018 at bedtime Results No Known Results Summary Purpose eClinicalWorks Submission
--- OUTSIDE RECORDS SUMMARY | 2019-10-24 14:54 | XMS REPORT ---
:[address] [facility] t Address [address] [place] [address] [place] [address] Care Team Providers Name Role Phone Unavailable Unavailable Unavailable Problems Condition Condition Condition Status Onset Resolution Last Treatin g Comments Name Details Category Date Date Treatment Clinician Date Edema of Edema of Problem Active larynx larynx Acute Acute Problem Active bronchitis bronchitis due to due to other other specified specified organisms organisms Cough Cough Problem Active Nasal Nasal Problem Active airway airway obstruction obstruction Deviated Deviated Problem Active nasal nasal septum septum Allergic Allergic Diagnosis Active rhinitis rhinitis Chronic Chronic Problem Active laryngitis laryngitis (LPRD) (LPRD) Eustachian Eustachian Problem Active tube tube dysfunction dysfunction , bilateral , bilateral Sinusitis - Sinusitis - Diagnosis Active Chronic Chronic Chronic Chronic Problem Active pansinusiti pansinusiti s s Nasal Nasal Diagnosis Active congestion congestion Allergies, Adverse Reactions, Alerts Allergy Allergy Status Severity Reaction(s) Onset Inactive Treating C faustino Name Type Date Date Clinician none Adverse Active Info Not Reaction Available Medications Ordered Filled Start Stop Current Ordering Indication Dosage Frequency Signature Comments Components Medication Medication Date Date Medication? Clinician (SIG) Name Name Tramadol Tramadol Yes Benton 1 tablet HCl HCl 7-27 Kennedy as needed 00:00: 00 Doxycycline Doxycycline Yes Benton not Kennedy defined tramadol tramadol Yes Benton not Kennedy defined Encounters Start End Encounter Admission Attending Care Care Encounter Date/Time Date/Time Type Type Clinicians Facility Department ID 2018-02-01 2018-02-01 Outpatient [facility] [id number] 10:42:00 10:42:00 [facility] 2018-02-01 2018-02-01 Outpatient [facility] [id number] 09:10:00 09:10:00 [facility] 2018-01-18 2018-01-18 Outpatient [facility] [id number] 14:20:00 14:20:00 [facility] 2018-01-18 2018-01-18 [facility] [id number] 09:53:00 09:53:[facility] 2018-01-11 2018-01-11 [facility] [id number] 11:10:00 11:10:00 [facility] 2018-01-07 2018-01-07 [facility] [id number] 11:19:00 11:19:00 [facility] 2018-01-04 2018-01-04 [facility] [id number] 14:09:00 14:09:00 [facility] 2018-01-04 2018-01-04 [facility] [id number] 14:05:00 14:05:00 [facility] 2018-01-04 2018-01-04 [facility] [id number] 12:08:00 12:08:00 [facility] 2018-01-04 2018-01-04 [facility] [id number] 09:30:00 09:30:00 [facility] 2018-01-03 2018-01-03 [facility] [id number] 14:16:00 14:16:00 [facility] 2017-12-18 2017-12-18 [facility] [id number] 08:20:00 08:20:00 [facility] 2017-11-26 2017-11-26 [facility] [id number] 10:47:00 10:47:00 [facility] 2017-11-26 2017-11-26 [facility] [id number] 10:20:00 10:20:00 [facility] 2017-11-23 2017-11-23 [facility] [id number] 16:06:00 16:06:00 [facility] 2017-11-21 2017-11-21 [facility] [id number] 16:03:00 16:03:00 [facility] 2017-11-19 2017-11-19 [facility] [id number] 10:50:00 10:50:00 [facility] 2017-11-09 2017-11-09 Outpatient [facility] [id number] 09:40:00 09:40:00 [facility] 2017-11-01 2017-11-01 Outpatient [facility] [place] [id number] 14:34:00 14:34:00 [facility] 2017-11-01 2017-11-01 Outpatient [facility] [id number] 11:00:00 11:00:00 [facility] 2017-11-01 2017-11-01 Outpatient [facility] [id number] 08:13:00 08:13:00 [facility] Results Test Description Test Time Test Comments Text Results Atomic Results Result Comments CR - XRAY CHEST XR 2 VIEWS CLINICAL INDIC ATION: J21.9 Acute bronchiolitis, unspecifiedTECHNIQUE: PA and lateral views of the chest.FINDINGS: Comparison s tudy: noneThe lungs are clear. There are no infiltra nivai or effusions.The cardiac silhouette is unrema rkable. The juli and mediastinum are intact.The r egional skeleton is intact.IMPRESSION:No acute a bnormalities in the chest.
--- OUTSIDE RECORDS SUMMARY | 2019-10-24 14:54 | XMS REPORT ---
[...] Active Problem Nasal airway obstruction J34.89 Act vyonne Medications Medication Code Code Instructions Start End Status Dosage System Date Date Tramadol HCl [facility] 15969837778 50 MG Orally January 04, Active 1 tablet every 4 hrs 2018 as needed for pain Doxycycline [facility] [address]-57 Active not defined Tramadol HCl ND 47426017705 50 MG Orally January 11, Active 1 tablet every 6 hrs 2018 as needed tramadol ND 0 Active not defined Results No Known Results Summary Purpose eClinicalWorks Submission
--- OUTSIDE RECORDS SUMMARY | 2019-10-24 14:54 | XMS REPORT ---
[...] End Status Dosage System Date Date Doxycycline [facility] [address]-27 Active not defined Tramadol HCl ND 85712268200 50 MG Orally January 11, Active 1 tablet every 6 hrs 2018 as needed tramadol NDC 0 Active not defined Tramadol HCl ND 11105170794 50 MG Orally January 04, Active 1 tablet every 4 hrs 2018 as needed for pain Results No Known Results Summary Purpose eClinicalWorks Submission
--- OUTSIDE RECORDS SUMMARY | 2019-10-24 14:54 | XMS REPORT ---
[...] Medications Medication Code Code Instructions Start End Date Status Dosage System Date Tramadol HCl [facility] 92389827573 50 MG Orally January 04, Active 1 tablet every 4 hrs 2018 as needed for pain Results No Known Results Summary Purpose [employer] Submission
[2019-10-24] MEDS ORDERED: TETANUS & DIPHTHERIA TOX,ADULT 0.5 ML VIAL ONE (15:20)
[2019-10-24] MEDS ORDERED: LIDOCAINE 1% W/EPI 1:100,000 MDV 50 ML VIAL ONE (15:20)
[2019-10-24] MEDS ORDERED: ACETAMINOPHEN 325 MG TABLET ONE (15:44)
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
--- NOTE | 2019-10-24 17:10 | EDPHYS ---
Physician Documentation [facility] Name: Alvarez Garcia Age: 64 yrs Sex: Male : 1955 Arrival Date: 10/24/2019 Time: 14:51 Bed 4 Private MD: ED Physician Parag Rodriguez HPI: 10/23 15:20 This 64 yrs old Male presents to ER via Ambulatory with complaints of cp Laceration To Scalp/Face. 15:20 The patient or guardian reports injury, a laceration, swelling, tenderness. The cp complaints affect the lateral to left eye. 15:20 Context of injury: [place] direct blow, cp surf board. Onset: The symptoms/episode began/occurred today. Associated signs and symptoms: Loss of consciousness: This patient did not experience any loss of consciousness. Historical: - Allergies: 14:54 No Known Allergies; sv - PMHx: 14:54 None; sv - PSHx: 14:54 None; sv - Immunization history:: Flu vaccine is not up to date. - Social history:: Smoking status: Patient denies any tobacco usage or history of. ROS: 15:30 Constitutional: Negative for poor PO intake. cp 15:30 Eyes: Negative for visual disturbance. 15:30 Neck: Negative for pain with movement, pain at rest, stiffness. 15:30 Cardiovascular: Negative for chest pain. 15:30 Respiratory: Negative for cough, shortness of breath, wheezing. 15:30 Abdomen/GI: Negative for abdominal pain, nausea. 15:30 Skin: Positive for ecchymosis, laceration(s), swelling, of the lateral to left eye. 15:30 Neuro: Negative for altered mental status, headache, loss of consciousness. 15:30 All other systems are negative. Exam: 15:35 Constitutional: The patient appears in no acute distress, alert, awake, well developed, cp well nourished. 15:35 Head/face: Noted is ecchymosis, that is mild, a laceration(s), swelling, that is mild, of the lateral to left eye, tenderness, that is mild. 15:35 Eyes: Pupils: equal, round, and reactive to light and accomodation, Extraocular movements: intact throughout, Conjunctiva: normal, no exudate, no injection, Anterior chamber: normal, no hyphema, Lids and lashes: appear normal, bilaterally, Examination of the other eye reveals no obvious gross abnormality. 15:35 ENT: External ear(s): are unremarkable, Nose: is normal, Mouth: is normal, Posterior pharynx: is normal, airway is patent. 15:35 Neck: C-spine: vertebral tenderness, is not appreciated, crepitus, is not appreciated. 15:35 Chest/axilla: Inspection: normal. 15:35 Cardiovascular: Rate: normal. 15:35 Respiratory: the patient does not display signs of respiratory distress, Respirations: normal. 15:35 Abdomen/GI: Exam negative for discomfort, distension, guarding, Inspection: abdomen appears normal. 15:35 Neuro: Orientation: to person, place \T\ time. Mentation: is normal, Cerebellar function: is grossly normal, Motor: moves all fours, strength is normal, Sensation: is normal. Vital Signs: 14:54 BP 159 / 90; Pulse 61; Resp 16; Temp 98.6; Pulse Ox 98% ; Weight 77.11 kg; Height 5 ft. sv 8 in. (172.72 cm); 15:48 BP 158 / 87; Pulse 63; Resp 15 S; Pulse Ox 99% on R/A; ca1 17:26 BP 145 / 79; Pulse 67; Resp 16; Temp 98.5; Pulse Ox 99% ; bp 14:54 Body Mass Index 25.85 (77.11 kg, 172.72 cm) sv [place] Coma Score: 15:20 Eye Response: spontaneous(4). Verbal Response: oriented(5). Motor Response: obeys cp commands(6). Total: 15. 17:05 Eye Response: spontaneous(4). Verbal Response: oriented(5). Motor Response: obeys cp commands(6). Total: 15. Laceration: 17:05 Wound Repair of 2.5cm ( 1.0in ) subcutaneous laceration to lateral to left eye. Linear cp shaped.. Distal neuro/vascular/tendon intact. Anesthesia: Wound infiltrated with 3 mls of 1% lidocaine w/ Epi. Wound prep: Simple cleansing by trim technician, Wound irrigation by trim technician. Skin closed with 7 6-0 Prolene using simple sutures and sterile technique. Dressed with Bacitracin, bandaid. Patient tolerated well. MDM: 14:59 Patient medically screened. halima 15:35 Differential diagnosis: Contusion of Laceration of Intracranial bleed- cerebral cp contusion, facial bone fracture. 17:08 Data reviewed: vital signs, nurses notes, radiologic studies, CT scan, and as a result, cp I will discharge patient. 17:08 Counseling: I had a detailed discussion with the patient and/or guardian regarding: the cp historical points, exam findings, and any diagnostic results supporting the discharge/admit diagnosis, radiology results, the need for outpatient follow up, a family practitioner, to return to the emergency department if symptoms worsen or persist or if there are any questions or concerns that arise at home. Response to treatment: the patient's symptoms have markedly improved after treatment. ED course: VSS. Laceration cleaned and closed as noted. Patient reports minimal pain. Will discharge to home. 10/23 15:30 Order name: CT Facial Bones W/O Con; Complete Time: 16:40 10/23 16:40 Interpretation: Report reviewed. 10/23 15:19 Order name: Dressing - Wound; Complete Time: 17:16 10/23 15:19 Order name: Gloves, Sterile; Complete Time: 15:20 10/23 15:19 Order name: Setup Suture Tray; Complete Time: 15:20 10/23 16:09 Order name: Wound Care: please clean and irrigate wound; Complete Time: 16:27 cp Administered Medications: 15:19 Drug: Lidocaine-Epinephrine -1%: (1:100,000) 5 ml {Note: AT B/S FOR PROVIDER.} Volume: bp 20 ml; Route: Infiltration; 15:19 Drug: Tetanus-Diphtheria Toxoid Adult 0.5 ml {Wire Rigger: Bolt. Exp: bp 08/01/2021. Lot #: [id number]. } Route: IM; Site: right deltoid; 15:40 Follow up: Response: No adverse reaction ca1 15:40 Drug: Tylenol 650 mg Route: PO; ca1 15:41 Follow up: Response: No adverse reaction bp Disposition: 17:30 Chart complete. cp Disposition: 10/24/19 17:09 Discharged to Home. Impression: Laceration without foreign body of unspecified part of head. - Condition is Stable. - Discharge Instructions: Facial Laceration. - Medication Reconciliation Form, Thank You Letter, Antibiotic Education, Prescription Opioid Use form. - Follow up: Private Physician; When: 5 - 6 days; Reason: Staple/Suture removal. - Problem is new. - Symptoms have improved. Addendum: 10/27/2019 20:13 Co-signature as Attending Physician, Parag Rodriguez MD I agree with the assessment and c leos plan of care. Signatures: Dispatcher [employer] January Pak RN RN sv Anderson, Corey, MD MD cha Page, Corey, PA PA Uri Posada RN RN bp Ariana Gatica RN RN ca1 Corrections: (The following items were deleted from the chart) 10/23 17:29 17:09 10/24/2019 17:09 Discharged to Home. Impression: Laceration without foreign body bp of unspecified part of head. Condition is Stable. Forms are Medication Reconciliation Form, Thank You Letter, Antibiotic Education, Prescription Opioid Use. Follow up: Private Physician; When: 5 - 6 days; Reason: Staple/Suture removal. Problem is new. Symptoms have improved. cp / 14:10/23 17:30 Skin: Positive for ecchymosis, laceration(s), swelling, of the lateral to cp left eye, cp / 14:10/23 17:30 Constitutional: Negative for poor PO intake, cp cp 05/ 14:10/23 17:30 Cardiovascular: Negative for chest pain, cp cp 05/ 14:10/23 17:30 Respiratory: Negative for cough, shortness of breath, wheezing, cp cp 05/ 14:10/23 17:30 Abdomen/GI: Negative for abdominal pain, nausea, cp cp 05/ 14:10/23 17:30 Neuro: Negative for altered mental status, headache, loss of consciousness, cp cp 05/ 14:10/23 17:30 Eyes: Negative for visual disturbance, cp cp 05/03 01:10/23 17:30 Neck: Negative for pain with movement, pain at rest, stiffness, cp cp 05/ 14:10/23 17:30 All other systems are negative, cp cp
--- NOTE | 2019-10-24 17:10 | ER ---
[facility] Name: Alvarez Garcia Age: 64 yrs Sex: Male : 1955 Arrival Date: 10/24/2019 Time: 14:51 Bed 4 Private MD: Diagnosis: Laceration without foreign body of unspecified part of head Presentation: 10/23 14:52 Chief complaint: Patient states: was [place] the beach to the left side sv of the face about an hour ago. Denies LOC. Coronavirus screen: Proceed with normal triage. Patient denies a cough. Patient denies shortness of breath or difficulty breathing. Patient denies measured and/or subjective temperature greater than 100.4F prior to today's visit. Patient denies travel on a cruise ship or to a country the [facility] currently lists as an affected area. Patient denies contact with known and/or suspected case of COVID-19. Ebola Screen: No symptoms or risks identified at this time. Complicating Factors: There are no complicating factors for this patient. Risk Assessment: Do you want to hurt yourself or someone else? Patient reports no desire to harm self or others. Onset of symptoms was October 24, 2019. 14:52 Method Of Arrival: Ambulatory sv 14:54 Initial Sepsis Screen: Does the patient meet any 2 criteria? No. Patient's initial sv sepsis screen is negative. Does the patient have a suspected source of infection? No. Patient's initial sepsis screen is negative. 14:54 Acuity: MICHAEL 3 sv Triage Assessment: 14:56 General: Appears in no apparent distress. comfortable, Behavior is calm, cooperative, sv appropriate for age. Pain: Complains of pain in left eye. Neuro: Level of Consciousness is awake, alert, obeys commands, Oriented to person, place, time, situation, Gait is steady. Respiratory: Respiratory effort is even, unlabored. Injury Description: Laceration sustained to left eye. Historical: - Allergies: 14:54 No Known Allergies; sv - PMHx: 14:54 None; sv - PSHx: 14:54 None; sv - Immunization history:: Flu vaccine is not up to date. - Social history:: Smoking status: Patient denies any tobacco usage or history of. Screenin:20 Abuse screen: Denies threats or abuse. Denies injuries from another. Nutritional bp screening: No deficits noted. Tuberculosis screening: No symptoms or risk factors identified. Fall Risk None identified. Assessment: 15:00 General: SEE TRIAGE NOTE. Musculoskeletal: No deficits noted. Injury Description: bp Laceration sustained to left eye is 0.5 to 2.5 cm long, not bleeding. 15:48 Reassessment: Patient appears in no apparent distress at this time. Patient and/or ca1 family updated on plan of care and expected duration. Pain level reassessed. Patient is alert, oriented x 3, equal unlabored respirations, skin warm/dry/pink. 16:21 Reassessment: Patient appears in no apparent distress at this time. Patient is alert, ca1 oriented x 3, equal unlabored respirations, skin warm/dry/pink. 17:28 Reassessment: PT D/C HOME AMBULATORY, DX WITH FACIAL LACERATION. bp Vital Signs: 14:54 BP 159 / 90; Pulse 61; Resp 16; Temp 98.6; Pulse Ox 98% ; Weight 77.11 kg; Height 5 ft. sv 8 in. (172.72 cm); 15:48 BP 158 / 87; Pulse 63; Resp 15 S; Pulse Ox 99% on R/A; ca1 17:26 BP 145 / 79; Pulse 67; Resp 16; Temp 98.5; Pulse Ox 99% ; bp 14:54 Body Mass Index 25.85 (77.11 kg, 172.72 cm) sv [place] Coma Score: 15:20 Eye Response: spontaneous(4). Verbal Response: oriented(5). Motor Response: obeys cp commands(6). Total: 15. 17:05 Eye Response: spontaneous(4). Verbal Response: oriented(5). Motor Response: obeys cp commands(6). Total: 15. ED Course: 14:51 Patient arrived in ED. mr 14:52 Arm band placed on. sv 14:55 Triage completed. sv 15:11 Ariana Gatica, RN is Primary Nurse. ca1 15:20 Patient has correct armband on for positive identification. Bed in low position. Call bp light in reach. Side rails up X2. 15:22 Parag Julio PA is PHCP. cp 15:22 Parag Rodriguez MD is Attending Physician. cp 16:11 CT Facial Bones W/O Con In Process Unspecified. EDMS 16:30 Wound care: to laceration located on lateral canthus of left eye was cleaned with 5 Hibiclens, irrigated with normal saline. 16:32 Pulse ox on. NIBP on. mh5 17:27 Assist provider with laceration repair on lateral canthus of left eye that was 2.5 cm. bp or less using sutures. Set up tray. Performed by Parag QUINTANA Dressed with Neosporin, Patient tolerated well. Patient did not have IV access during this emergency room visit. Administered Medications: 15:19 Drug: Lidocaine-Epinephrine -1%: (1:100,000) 5 ml {Note: AT B/S FOR PROVIDER.} Volume: bp 20 ml; Route: Infiltration; 15:19 Drug: Tetanus-Diphtheria Toxoid Adult 0.5 ml {[employer] Maker: [email or web address]. Exp: bp 08/01/2021. Lot #: [id number]. } Route: IM; Site: right deltoid; 15:40 Follow up: Response: No adverse reaction ca1 15:40 Drug: Tylenol 650 mg Route: PO; ca1 15:41 Follow up: Response: No adverse reaction bp Outcome: 17:09 Discharge ordered by . cp 17:27 Discharged to home ambulatory. bp 17:27 Condition: stable 17:27 Discharge instructions given to patient, Instructed on discharge instructions, follow up and referral plans. wound care, Demonstrated understanding of instructions, follow-up care, wound care. 17:29 Patient left the ED. bp Signatures: Dispatcher [employer] [facility] January Alexandra RN RN sv RiveraBell Corey, PA PA cp Martinez, [facility] Uri Garcia RN RN bp Ariana Gatica RN RN ca1 Corrections: (The following items were deleted from the chart) 14:56 14:54 77.11 kg; Height 5 ft. 8 in.; BMI: 25.8; sv sv 14:57 14:54 Pulse 61bpm; Resp 16bpm; Pulse Ox 98%; Temp 98.6F; 77.11 kg; Height 5 ft. 8 in.; sv BMI: 25.8; sv
[2019-10-24 17:56] VITALS: O2SAT 99
[2019-10-24 17:58] VITALS: BP 145/79; TEMP 98.5
== END 2019-10-24 17:29 | disposition home or self-care (01) ==
LOC: ER 14:49
PROC: 0JQ10ZZ Repair Face Subcutaneous Tissue and Fascia, Open Approach (ICD-10-PCS; principal; 2019-10-24)
DX: S05.32XA Ocular laceration without prolapse or loss of intraocular tissue, left eye, initial encounter (principal); W22.8XXA Striking against or struck by other objects, initial encounter; Y93.9 Activity, unspecified; Y92.832 Beach as the place of occurrence of the external cause
CPT/HCPCS: 70486; 76377; 90471; 90714; 99284